=== PATIENT | male | born 1985 | race African-American/Black ===

== ENCOUNTER 2017-09-30 09:26 | Emergency (ER) | payer SELFPAY ==
[~2017-09-30] VITALS: Ht 175.3 cm; Wt 60.0 kg
[2017-09-30 09:40] VITALS: BP 140/96; PULSE 81; RESP 17; TEMP 98.3; O2SAT 100
[2017-09-30] MEDS ORDERED: MAGICADU2 SWISH-SPIT (10:17)
--- NOTE | 2017-09-30 10:22 | PD ---
HPI Chief Complaint: ENT Complaint Time Seen by Provider: 10:04 Travel History International Travel<30 days: No Contact w/Intl Traveler<30days: No Traveled to known affect area: No History of Present Illness HPI 32-year-old male presents emergency department for evaluation of a sore throat and pain to his mouth been present for 2 days. Patient states that he is having trouble swallowing because of the pain. Says he feels like his neck is swollen and has some ear pain as well. He denies fever, chills, cough, congestion, nausea, vomiting or diarrhea. Patient denies any sick contacts. States his children are in daycare however, they are not sick. He denies any rashes or lesions to his skin. [facility] Past Medical History Medical History: Denies Significant Hx Diminished Hearing: No Tetanus Vaccination: < 5 Years Past Surgical History Surgical History: No Previous Surgery Social History Alcohol Use: Yes (OCCASIONAL ) Tobacco Use: No Substance Use: No Allergies-Medications (Allergen,Severity, Reaction): Coded Allergies: No Known Allergies (Unverified Adverse Reaction, Unknown, 09/30/17) Reported Meds & Prescriptions Reported Meds & Active Scripts Active Magic Mouthwash Adult Liq (Multi-Ingredient Mouthwash/Gargle) 120 Ml Susp 5 Ml SWISH-SPIT ACHS Each 5mL contains: Nystatin 200,000units, Diphenhydramine 4.25mg, Viscous Lidocaine 10mg, Sanabria syrup 0.8 mL Review of Systems Except as stated in HPI: all other systems reviewed are Neg Physical Exam Narrative GENERAL: Well-nourished, well-developed patient. SKIN: Focused skin assessment warm/dry. HEAD: Normocephalic. EYES: No scleral icterus. No injection or drainage. EARS: Bilateral pinnae and external canals appear within normal limits. Bilateral tympanic membranes without erythema, dullness or perforation. THROAT: Mild pharyngeal injection. No exudates, or tonsillar hypertrophy. Airway is patent. NECK: Supple, trachea midline. No JVD or lymphadenopathy. CARDIOVASCULAR: Regular rate and rhythm without murmurs, gallops, or rubs. RESPIRATORY: Breath sounds equal bilaterally. No accessory muscle use. GASTROINTESTINAL: Abdomen soft, non-tender, nondistended. MUSCULOSKELETAL: No cyanosis, or edema. BACK: Nontender without obvious deformity. No CVA tenderness. Data Data Last Documented VS Vital Signs Date Time Temp Pulse Resp B/P (MAP) Pulse Ox O2 Delivery O2 Flow Rate FiO2 09/30/17 09:40 98.3 81 17 140/96 (111) 100 MDM Medical Decision Making Medical Screen Exam Complete: Yes Emergency Medical Condition: Yes Differential Diagnosis [place] ulcers, upper respiratory infection, viral syndrome, strep pharyngitis Narrative Course 32-year-old male presents emergency department for evaluation of a sore throat and pain to his mouth been present for 2 days. Patient states that he is having trouble swallowing because of the pain. Says he feels like his neck is swollen and has some ear pain as well. He denies fever, chills, cough, congestion, nausea, vomiting or diarrhea. Patient denies any sick contacts. States his children are in daycare however, they are not sick. He denies any rashes or lesions to his skin. Vital signs stable. No fever. His exam findings consistent with aphthous ulcers. Patient complains of multiple areas of his mouth that are painful. Most prominent was on the hard palate on the right. No lymphadenopathy. Neck was supple without restrictions of range of motion. I reassured patient. Did offer strep swab however, do not feel this is necessary. Patient be discharged with Magic mouthwash. Advised to follow-up with primary care physician. Advised to return for worsening or persistent symptoms. Diagnosis Primary Impression: Aphthous ulcer Referrals: Primary Care Physician Additional Instructions: Use mouth rinse as prescribed for discomfort If you develop runny nose or nasal congestion, consider dael-wte-lehxfqv antihistamine such as Zyrtec or Claritin to reduce the nasal drainage. Ensure adequate fluid intake and proper nutrition. If your symptoms persist or worsen return to the emergency department. Scripts Dzvehmei-Xoudrbnnlvazicv-Atbhbrcdt Liq (Magic Mouthwash Adult Liq) 120 Ml Susp 5 ML SWISH-SPIT ACHS for Mouth sores, #120 ML 0 Refills Each 5mL contains: Nystatin 200,000units, Diphenhydramine 4.25mg, Viscous Lidocaine 10mg, Sanabria syrup 0.8 mL Prov: Lucho Fuller MD 09/30/17 Disposition: 01 DISCHARGE HOME Condition: Stable Vannessa Shea Sep 30, 2017 10:22
== END 2017-09-30 10:50 | disposition home or self-care (01) ==
LOC: PHEFT 09:26
DX: K12.0 Recurrent oral aphthae (principal)
CPT/HCPCS: 99283